=== PATIENT | female | born 1995 | race Caucasian/White ===

== ENCOUNTER → 2018-02-10 16:13 | Outpatient (CLI) | payer BC, SELFPAY ==
[2018-02-16 13:41] LABS: HPV Reflexed? NOT INDICATED
== END ==
PROVIDERS: Family Provider Pediatrics; PCP Pediatrics; Visit Provider Obstetrics & Gynecology
DX: Z12.4 Encounter for screening for malignant neoplasm of cervix (principal)
CPT/HCPCS: 88175; G0145

== ENCOUNTER → 2019-04-21 14:04 | Outpatient (CLI) | payer BC, SELFPAY ==
[2016-05-13 13:33] VITALS: BMI 20.8
[2019-04-21 18:01] LABS: Chlamydia Trachomatis by PCR Negative (Negative); Neisserai gonorrhoeae by PCR Negative (Negative); Probe Check PASS; Sample Adequacy Control PASS; Specimen Processing Control PASS
== END ==
PROVIDERS: Visit Provider Obstetrics & Gynecology
DX: Z11.3 Encounter for screening for infections with a predominantly sexual mode of transmission (principal)
CPT/HCPCS: 87491; 87591

== ENCOUNTER 2021-09-14 14:28 | Outpatient (CLI) | payer OTHER, SELFPAY ==
[2021-09-17 22:06] LABS: Chlamydia By Nucleic Acid AMP Negative (Negative)
[2021-09-18 11:51] LABS: Gonococcus By Nucleic Acid AMP Negative (Negative)
[2021-09-24 20:54] LABS: HPV Reflexed? NOT INDICATED
== END 2021-09-14 23:59 | disposition home or self-care (01) ==
LOC: LABSPEC 14:32
PROVIDERS: Visit Provider Obstetrics & Gynecology
DX: Z12.4 Encounter for screening for malignant neoplasm of cervix (principal); Z11.3 Encounter for screening for infections with a predominantly sexual mode of transmission
CPT/HCPCS: 87491; 87591; 88175; G0145

== ENCOUNTER → 2022-09-19 | Outpatient (CLI) | payer OTHER, SELFPAY ==
[2022-09-27 21:36] LABS: HPV APTIMA, High Risk Negative (Negative)
== END | disposition home or self-care (01) ==
LOC: LABSPEC 09:44
PROVIDERS: Visit Provider Obstetrics & Gynecology
DX: Z12.4 Encounter for screening for malignant neoplasm of cervix (principal)
CPT/HCPCS: 87624; 88175; G0145

== ENCOUNTER → 2022-10-22 | Outpatient (CLI) | payer OTHER, SELFPAY ==
--- NOTE | 2022-10-22 | CER_PTH ---
[facility]: [id number] AGE/SX: 26/F ROOM: RE10/22/[address]: Dr. Kamaljit Black MD : 1995 BED: DIS: 10/22/2022 SPEC #: [id number] RECD: 10/22/22 14:19 STATUS: MEG DOLANWyatt #: [id number] NICK: 10/22/22 00:[address]: Kamaljit Black DEPT: SURGICAL PATHOLOGY RECD BY: Nito Bey Tissues: A - Uterine cervix, NOS B - Endocervical Procedures: Surgery Specimen Level IV HEADER OPERATION: Colposcopy PRE-OP DIAGNOSIS: R87.619 TISSUE SUBMITTED: A ? Cervical biopsy 1, 5, 7, 11, B - ECC MICROSCOPIC DIAGNOSIS A. Cervix, 1, 5, 7 and 11, biopsy: Negative for dysplasia. Chronic inflammation. B. ECC: Fragments of benign endocervical mucosa with chronic inflammation. Scant fragment of benign squamous epithelium. Negative for dysplasia. See comment. AYO:arianna 10/24/2022 COMMENT Multiple levels are examined. Clinical correlation and appropriate follow up are necessary. MICROSCOPIC DESCRIPTION Slides are reviewed. GROSS DESCRIPTION A - Received in fixative is one container labeled with the patient's name and designated 1, 5, 7, 11. The specimen consists of multiple irregular fragments of dumont tissue that in aggregate measure 2.0 x 0.8 x 0.2 cm. The specimen is totally submitted in one cassette. B - Received in fixative is one container labeled with the patient's name and designated ECC. The specimen consists of multiple irregular fragments of dumont tissue that in aggregate measure 1.5 x 0.5 x <0.1 cm. The specimen is totally submitted in one cassette. / AM:arianna 10/23/2022 TC:3 CPT: 17395 x2
== END | disposition home or self-care (01) ==
LOC: LABSPEC 14:05
PROVIDERS: Visit Provider Obstetrics & Gynecology
DX: R87.619 Unspecified abnormal cytological findings in specimens from cervix uteri (principal)
CPT/HCPCS: 88305